=== PATIENT | female | born 1980 | race Caucasian/White ===

== ENCOUNTER 2020-02-21 07:11 | Outpatient (CLI) | payer OTHER ==
[~2020-02-21 07:11] MED LIST: ARIMIDEX PO; BONIVA150 MG PO; OXYC1TAB9 PO; SEPTRA DS TABLE1 TAB PO
== END 2020-02-21 07:18 | disposition home or self-care (01) ==
LOC: LAB 07:11
PROVIDERS: ATTEND Surgery
DX: D64.89 Other specified anemias (principal); D68.8 Other specified coagulation defects; I10 Essential (primary) hypertension; N39.0 Urinary tract infection, site not specified; E11.00 Type 2 diabetes mellitus with hyperosmolarity without nonketotic hyperglycemic-hyperosmolar coma (NKHHC); E04.1 Nontoxic single thyroid nodule; E78.2 Mixed hyperlipidemia; Z20.828 Contact with and (suspected) exposure to other viral communicable diseases

== ENCOUNTER 2020-02-22 06:24 | Day surgery (SDC) | payer OTHER | END 2020-02-22 11:55 | disposition home or self-care (01) | LOC: CIR.AMB 06:24 | PROVIDERS: ATTEND Surgery | DX: C50.811 Malignant neoplasm of overlapping sites of right female breast (principal) ==